=== PATIENT | female | born 1980 | race Caucasian/White ===

== ENCOUNTER → 2018-04-22 | Outpatient (CLI) | payer BC ==
[2016-01-14 13:00] VITALS: BP 157/97
[~2018-04-22] MED LIST: CHOLESTYRAMINE P4 GM PO; EFFEXOR XR150 M1 PO; EFFEXOR75 MG PO; KLOR-CON20 MEQ PO; ZANTAC150 MG PO
[2018-04-22 14:33] LABS: BASO # 0.1 (0.02-0.10); EOS # 0.1 (0.04-0.40); EOS % 1.5 % (1.0-5.0); HEMOGLOBIN 12.6 g/dL (12.5-16.0); LYMPH# 3.1 (1.50-4.00); MEAN CELL VOLUME 82 fl (78-100); MEAN CORPUSCULAR HEMOGLOBIN 26 pg (27-31); MEAN CORPUSCULAR HGB CONC 32 g/dL (33-37); MEAN PLATELET VOLUME 10.5 fl (7.4-10.4); MONO # 0.6 (0.20-0.80); NEU # 5.5 (1.40-6.50); PLATELET COUNT 407 K/mm3 (130-400); RED CELL DISTRIBUTION WIDTH 14.1 % (11.5-14.5); WHITE BLOOD COUNT 9.4 K/mm3 (4.8-10.8)
[2018-04-22 14:40] LABS: ALBUMIN 3.8 g/dL (3.5-5.0); BUN/CREATININE RATIO 13.8 (6.0-26.0); CALCIUM 8.7 mg/dL (8.4-10.2); POTASSIUM 3.9 mmol/L (3.6-5.0); TOTAL BILIRUBIN 0.4 mg/dL (0.2-1.3)
[2018-04-22 15:39] LABS: ERYTHROCYTE SEDIMENTATION RATE 35 mm/hr (0-20)
== END ==
LOC: LAB 14:12
PROVIDERS: Internal Medicine
DX: Z00.00 Encounter for general adult medical examination without abnormal findings (principal)

== ENCOUNTER → 2018-06-27 | Outpatient (CLI) | payer BC ==
[2016-01-14 13:00] VITALS: BP 157/97
== END ==
LOC: LAB 14:10
DX: N39.0 Urinary tract infection, site not specified (principal)

== ENCOUNTER → 2018-11-25 | Outpatient (CLI) | payer BC ==
[2016-01-14 13:00] VITALS: BP 157/97
== END ==
LOC: RAD 11:57
DX: M54.16 Radiculopathy, lumbar region (principal); M54.5 Low back pain

== ENCOUNTER → 2019-06-10 | Outpatient (CLI) | payer BC ==
[2016-01-14 13:00] VITALS: BP 157/97
[2019-06-10 10:07] LABS: POTASSIUM 4.2 mmol/L (3.5-5.1)
[2019-06-10 10:08] LABS: ALBUMIN 3.6 g/dL (3.5-5.0)
[2019-06-10 10:10] LABS: TOTAL PROTEIN 7.2 g/dL (6.4-8.3)
[2019-06-10 10:12] LABS: TOTAL BILIRUBIN 0.4 mg/dL (0.2-1.2)
[2019-06-10 10:19] LABS: BASO # 0.1 (0.02-0.10); EOS # 0.1 (0.04-0.40); EOS % 1.9 % (1.0-5.0); HEMOGLOBIN 12.4 g/dL (12.5-16.0); LYMPH# 2.4 (1.50-4.00); MEAN CELL VOLUME 83 fl (78-100); MEAN CORPUSCULAR HEMOGLOBIN 26 pg (27-31); MEAN CORPUSCULAR HGB CONC 32 g/dL (33-37); MEAN PLATELET VOLUME 11.2 fl (7.4-10.4); MONO # 0.5 (0.20-0.80); PLATELET COUNT 361 K/mm3 (130-400); RED BLOOD COUNT 4.72 M/mm3 (4.10-5.30); RED CELL DISTRIBUTION WIDTH 13.8 % (11.5-14.5)
== END ==
LOC: LAB 09:16
PROVIDERS: Internal Medicine
DX: Z00.00 Encounter for general adult medical examination without abnormal findings (principal); K90.89 Other intestinal malabsorption

== ENCOUNTER → 2020-04-16 | Outpatient (CLI) | payer BC ==
[2016-01-14 13:00] VITALS: BP 157/97
[2020-04-16 12:35] LABS: URINE APPEARANCE HAZY; URINE BILIRUBIN NEGATIVE (NEGATIVE); URINE BLOOD NEGATIVE (NEGATIVE); URINE COLOR YELLOW; URINE GLUCOSE NEGATIVE (NEGATIVE); URINE KETONE NEGATIVE (NEGATIVE); URINE LEUKOCYTE ESTERASE TRACE (NEGATIVE); URINE NITRATE NEGATIVE (NEGATIVE); URINE PROTEIN(semi-quant) NEGATIVE (NEGATIVE); URINE UROBILINOGEN NORMAL (NORMAL)
[2020-04-16 12:36] LABS: URINE MUCUS PRESENT (NOT PRESENT)
== END ==
LOC: LAB 10:39
PROVIDERS: Internal Medicine
DX: N30.00 Acute cystitis without hematuria (principal)

== ENCOUNTER → 2020-05-17 | Outpatient (CLI) | payer BC ==
[2016-01-14 13:00] VITALS: BP 157/97
[2020-05-17 09:53] LABS: BASO # 0.1 (0.02-0.10); EOS # 0.1 (0.04-0.40); EOS % 1.1 % (1.0-5.0); HEMATOCRIT 40.8 % (37.0-47.0); LYMPH# 2.3 (1.50-4.00); MEAN CELL VOLUME 85 fl (78-100); MEAN CORPUSCULAR HEMOGLOBIN 27 pg (27-31); MEAN CORPUSCULAR HGB CONC 32 g/dL (33-37); MEAN PLATELET VOLUME 11.2 fl (7.4-10.4); MONO # 0.5 (0.20-0.80); NEU # 4.4 (1.40-6.50); PLATELET COUNT 315 K/mm3 (130-400); RED BLOOD COUNT 4.78 M/mm3 (4.10-5.30); WHITE BLOOD COUNT 7.3 K/mm3 (4.8-10.8)
[2020-05-17 10:01] LABS: ALBUMIN 3.7 g/dL (3.5-5.0)
[2020-05-17 10:02] LABS: CALCIUM 8.8 mg/dL (8.3-10.5)
[2020-05-17 10:03] LABS: TOTAL PROTEIN 6.8 g/dL (6.4-8.3)
[2020-05-17 10:05] LABS: TOTAL BILIRUBIN 0.6 mg/dL (0.2-1.2)
[2020-05-17 10:55] LABS: ERYTHROCYTE SEDIMENTATION RATE 13 mm/hr (0-20)
== END ==
LOC: LAB 09:40
PROVIDERS: Internal Medicine
DX: Z00.00 Encounter for general adult medical examination without abnormal findings (principal); D64.9 Anemia, unspecified

== ENCOUNTER → 2021-06-16 | Outpatient (CLI) | payer BC | LOC: LAB 17:30 | DX: Z20.822 Contact with and (suspected) exposure to COVID-19 (principal) ==

== ENCOUNTER → 2021-08-14 | Outpatient (CLI) | payer BC ==
[2021-08-14 11:36] LABS: BASO # 0.07 K/mm3 (0.02-0.10); EOS # 0.08 K/mm3 (0.04-0.40); EOS % 1.3 % (1.0-5.0); HEMATOCRIT 38.6 % (37.0-47.0); HEMOGLOBIN 12.2 g/dL (12.5-16.0); LYMPH# 2.41 K/mm3 (1.50-4.00); MEAN CELL VOLUME 85 fl (78-100); MEAN CORPUSCULAR HEMOGLOBIN 27 pg (27-31); MEAN CORPUSCULAR HGB CONC 32 g/dL (33-37); MEAN PLATELET VOLUME 10.8 fl (7.4-10.4); MONO # 0.34 K/mm3 (0.20-0.80); NEU # 3.48 K/mm3 (1.40-6.50); PLATELET COUNT 305 K/mm3 (130-400); RED BLOOD COUNT 4.54 M/mm3 (4.10-5.30); RED CELL DISTRIBUTION WIDTH 13.3 % (11.5-14.5); WHITE BLOOD COUNT 6.4 K/mm3 (4.8-10.8)
[2021-08-14 11:45] LABS: ALBUMIN 3.7 g/dL (3.5-5.0); POTASSIUM 3.8 mmol/L (3.5-5.1)
[2021-08-14 11:46] LABS: CALCIUM 8.9 mg/dL (8.3-10.5)
[2021-08-14 11:49] LABS: TOTAL BILIRUBIN 0.4 mg/dL (0.2-1.2)
== END ==
LOC: LAB 09:56 → MAMMO 09:56
PROVIDERS: Internal Medicine
DX: Z12.31 Encounter for screening mammogram for malignant neoplasm of breast (principal); Z00.00 Encounter for general adult medical examination without abnormal findings; N63.20 Unspecified lump in the left breast, unspecified quadrant

== ENCOUNTER → 2021-08-21 | Outpatient (CLI) | payer BC | LOC: RAD 06:51 | DX: Z12.39 Encounter for other screening for malignant neoplasm of breast (principal); N63.20 Unspecified lump in the left breast, unspecified quadrant ==

== ENCOUNTER → 2021-08-24 | Outpatient (CLI) | payer BC | LOC: RAD 13:17 | DX: N63.20 Unspecified lump in the left breast, unspecified quadrant (principal) ==

== ENCOUNTER 2021-11-07 14:00 | Outpatient (RCR) | payer BC | END 2021-11-20 | disposition home or self-care (01) | LOC: PT | DX: M54.16 Radiculopathy, lumbar region (principal) ==

== ENCOUNTER 2021-12-19 04:53 | Emergency (ER) | payer BC ==
[~2021-12-19] VITALS: Ht 165.1 cm; Wt 129.5 kg
[2021-12-19] MEDS ORDERED: PRISTIQ50 M1 PO (05:06)
[2021-12-19] MEDS ORDERED: DILAUDID4 M1 PO (05:07)
[2021-12-19] MEDS ORDERED: VALIUM 2MG T2 MG/TAB PO ×2 (06:28)
[2021-12-19 06:35] VITALS: BP 157/107
== END 2021-12-19 06:35 | disposition home or self-care (01) ==
LOC: ED 04:53
DX: M54.32 Sciatica, left side (principal); M62.830 Muscle spasm of back; E66.01 Morbid (severe) obesity due to excess calories; Z88.6 Allergy status to analgesic agent; Z88.5 Allergy status to narcotic agent; Z68.42 Body mass index [BMI] 45.0-49.9, adult
CPT/HCPCS: J1170; J1885

== ENCOUNTER → 2021-12-21 | Outpatient (CLI) | payer BC ==
[~2021-12-21] MED LIST changes: +DILAUDID4 M1 PO; +HYDROMORPHONE HC4 M1 PO; +PREDNISONE20 M1 PO; +PRISTIQ50 M1 PO; +TIZANIDINE HYDRO4 M1 PO; +VALIUM 2MG T2 MG/TAB PO; +VITAMIN D3 COM1 EACH PO
== END ==
LOC: RAD 10:36
DX: M47.27 Other spondylosis with radiculopathy, lumbosacral region (principal); M48.07 Spinal stenosis, lumbosacral region; M51.17 Intervertebral disc disorders with radiculopathy, lumbosacral region

== ENCOUNTER 2021-12-23 17:11 | Observation (INO) | payer BC ==
[~2021-12-23] VITALS: Ht 165.1 cm; Wt 127.7 kg
[~2021-12-23 17:11] MED LIST changes: -HYDROMORPHONE HC4 M1 PO; -PREDNISONE20 M1 PO; -TIZANIDINE HYDRO4 M1 PO; -VITAMIN D3 COM1 EACH PO
[2021-12-23] MEDS ORDERED: PREDNISONE20 M1 PO (17:27)
[2021-12-23] MEDS ORDERED: VITAMIN D3 COM1 EACH PO (17:28)
[2021-12-23 21:00] VITALS: BP 139/95
[2021-12-24 02:09] VITALS: BP 131/82
[2021-12-24 06:09] VITALS: BP 141/88
[2021-12-24 09:32] VITALS: BP 129/84
[2021-12-24] MEDS ORDERED: TIZANIDINE HYDRO4 M1 PO (11:57)
[2021-12-24] MEDS ORDERED: HYDROMORPHONE HC4 M1 PO (12:28)
== END 2021-12-24 13:15 | disposition home or self-care (01) ==
LOC: ED 17:11 → MED/SURG 20:53
PROVIDERS: ADMIT Family Medicine
DX: M51.16 Intervertebral disc disorders with radiculopathy, lumbar region (principal); M62.830 Muscle spasm of back; E66.01 Morbid (severe) obesity due to excess calories; Z68.42 Body mass index [BMI] 45.0-49.9, adult; Z73.89 Other problems related to life management difficulty
CPT/HCPCS: G0378; J1650; J1885; J2360; J3490

== ENCOUNTER 2022-01-24 09:49 | Outpatient (RCR) | payer BC ==
[~2022-01-24 09:49] MED LIST changes: +HYDROMORPHONE HC4 M1 PO; +PREDNISONE20 M1 PO; +TIZANIDINE HYDRO4 M1 PO; +VITAMIN D3 COM1 EACH PO
== END 2022-02-20 | disposition home or self-care (01) ==
LOC: PT
DX: M54.16 Radiculopathy, lumbar region (principal)

== ENCOUNTER → 2022-06-15 | Outpatient (CLI) | payer BC ==
[2022-06-15 10:09] LABS: BASO # 0.08 K/mm3 (0.02-0.10); EOS # 0.11 K/mm3 (0.04-0.40); EOS % 1.6 % (1.0-5.0); HEMATOCRIT 40.4 % (37.0-47.0); HEMOGLOBIN 12.8 g/dL (12.5-16.0); LYMPH# 2.29 K/mm3 (1.50-4.00); MEAN CELL VOLUME 84 fl (78-100); MEAN CORPUSCULAR HEMOGLOBIN 27 pg (27-31); MEAN CORPUSCULAR HGB CONC 32 g/dL (33-37); MEAN PLATELET VOLUME 11.1 fl (7.4-10.4); MONO # 0.42 K/mm3 (0.20-0.80); NEU # 3.79 K/mm3 (1.40-6.50); PLATELET COUNT 351 K/mm3 (130-400); RED BLOOD COUNT 4.82 M/mm3 (4.10-5.30); RED CELL DISTRIBUTION WIDTH 13.4 % (11.5-14.5); WHITE BLOOD COUNT 6.7 K/mm3 (4.8-10.8)
[2022-06-15 10:17] LABS: ALBUMIN 3.8 g/dL (3.5-5.0); POTASSIUM 3.8 mmol/L (3.5-5.1)
[2022-06-15 10:18] LABS: CALCIUM 9.2 mg/dL (8.3-10.5)
[2022-06-15 10:19] LABS: TOTAL PROTEIN 7.2 g/dL (6.4-8.3)
[2022-06-15 10:21] LABS: TOTAL BILIRUBIN 0.4 mg/dL (0.2-1.2)
== END ==
LOC: LAB 09:48
PROVIDERS: Internal Medicine
DX: Z00.00 Encounter for general adult medical examination without abnormal findings (principal)

== ENCOUNTER 2022-12-04 09:15 | Outpatient (RCR) | payer BC | END 2022-12-21 | disposition home or self-care (01) | LOC: PT | DX: M54.16 Radiculopathy, lumbar region (principal); Z98.890 Other specified postprocedural states ==

== ENCOUNTER → 2023-10-10 | Outpatient (CLI) | payer BC | LOC: MAMMO 10:22 | DX: Z12.31 Encounter for screening mammogram for malignant neoplasm of breast (principal) ==

== ENCOUNTER → 2024-02-18 | Outpatient (CLI) | payer BC ==
[2024-04-08 13:12] LABS: ALBUMIN 3.7 g/dL (3.5-5.0); CALCIUM 9.1 mg/dL (8.3-10.5); TOTAL BILIRUBIN 0.3 mg/dL (0.2-1.2); TOTAL PROTEIN 6.7 g/dL (6.4-8.3)
[2024-04-08 13:19] LABS: BASO # 0.02 K/mm3 (0.02-0.10); EOS # 0.11 K/mm3 (0.04-0.40); EOS % 1.4 % (1.0-5.0); HEMATOCRIT 40.6 % (37.0-47.0); HEMOGLOBIN 13.1 g/dL (12.5-16.0); LYMPH# 3.26 K/mm3 (1.50-4.00); MEAN CELL VOLUME 86 fl (78-100); MEAN CORPUSCULAR HEMOGLOBIN 28 pg (27-31); MEAN CORPUSCULAR HGB CONC 32 g/dL (33-37); MEAN PLATELET VOLUME 10.8 fl (7.4-10.4); MONO # 0.43 K/mm3 (0.20-0.80); NEU # 3.97 K/mm3 (1.40-6.50); PLATELET COUNT 344 K/mm3 (130-400); RED BLOOD COUNT 4.75 M/mm3 (4.10-5.30); RED CELL DISTRIBUTION WIDTH 12.5 % (11.5-14.5); WHITE BLOOD COUNT 7.8 K/mm3 (4.8-10.8)
[2024-04-08 13:30] LABS: URINE APPEARANCE CLEAR (CLEAR); URINE BILIRUBIN 1+ (NEGATIVE); URINE BLOOD NEGATIVE (NEGATIVE); URINE COLOR YELLOW (YELLOW); URINE GLUCOSE NEGATIVE (NEGATIVE); URINE KETONE NEGATIVE (NEGATIVE); URINE LEUKOCYTE ESTERASE NEGATIVE (NEGATIVE); URINE NITRATE NEGATIVE (NEGATIVE); URINE PROTEIN(semi-quant) NEGATIVE (NEGATIVE); URINE WBC 0-1 /hpf (0-3)
[2024-04-08 13:31] LABS: URINE MUCUS PRESENT (NOT PRESENT)
== END ==
LOC: LAB 15:56
PROVIDERS: Internal Medicine
DX: R11.2 Nausea with vomiting, unspecified (principal)

== ENCOUNTER → 2024-03-18 | Outpatient (CLI) | payer BC ==
[2024-03-18 18:14] LABS: BASO # 0.04 K/mm3 (0.02-0.10); EOS # 0.07 K/mm3 (0.04-0.40); EOS % 0.8 % (1.0-5.0); HEMATOCRIT 41.3 % (37.0-47.0); HEMOGLOBIN 13.6 g/dL (12.5-16.0); LYMPH# 3.08 K/mm3 (1.50-4.00); MEAN CELL VOLUME 85 fl (78-100); MEAN CORPUSCULAR HEMOGLOBIN 28 pg (27-31); MEAN CORPUSCULAR HGB CONC 33 g/dL (33-37); MEAN PLATELET VOLUME 10.4 fl (7.4-10.4); MONO # 0.48 K/mm3 (0.20-0.80); NEU # 4.96 K/mm3 (1.40-6.50); PLATELET COUNT 389 K/mm3 (130-400); RED BLOOD COUNT 4.85 M/mm3 (4.10-5.30); RED CELL DISTRIBUTION WIDTH 12.4 % (11.5-14.5); WHITE BLOOD COUNT 8.7 K/mm3 (4.8-10.8)
[2024-03-18 18:22] LABS: TOTAL PROTEIN 7.4 g/dL (6.4-8.3)
[2024-03-18 18:23] LABS: TOTAL BILIRUBIN 0.4 mg/dL (0.2-1.2)
== END ==
LOC: LAB 17:54
PROVIDERS: Internal Medicine
DX: L08.9 Local infection of the skin and subcutaneous tissue, unspecified (principal)

== ENCOUNTER → 2024-12-09 | Outpatient (CLI) | payer BC ==
[2024-12-09 17:59] LABS: BASO # 0.04 K/mm3 (0.02-0.10); EOS % 0.9 % (1.0-5.0); HEMOGLOBIN 13.5 g/dL (12.5-16.0); LYMPH# 2.81 K/mm3 (1.50-4.00); MEAN CELL VOLUME 85 fl (78-100); MEAN CORPUSCULAR HEMOGLOBIN 27 pg (27-31); MEAN CORPUSCULAR HGB CONC 32 g/dL (33-37); MEAN PLATELET VOLUME 10.1 fl (7.4-10.4); MONO # 0.66 K/mm3 (0.20-0.80); NEU # 7.95 K/mm3 (1.40-6.50); PLATELET COUNT 377 K/mm3 (130-400); RED BLOOD COUNT 4.97 M/mm3 (4.10-5.30); RED CELL DISTRIBUTION WIDTH 13.6 % (11.5-14.5); WHITE BLOOD COUNT 11.6 K/mm3 (4.8-10.8)
== END ==
LOC: LAB 17:35
PROVIDERS: Nurse Practitioner Family
DX: R59.0 Localized enlarged lymph nodes (principal)